=== PATIENT | female | born 1940 | race Caucasian/White ===

== ENCOUNTER 2019-02-05 20:05 | Emergency (ER) | payer OTHER ==
[~2019-02-05] VITALS: Ht 170.2 cm; Wt 77.1 kg
[~2019-02-05 20:05] MED LIST: ACET500 PO; ALLO100 PO; ANTIINFLAMMATORY; BISA5EC PO; CALCAVITD PO; DOCU100 PO; Daily Multiple1 EACH PO; FISH1000 PO; HYDACE5 PO; L-LYSINE600 MG PO; LEVSOD50 PO; LISI20 PO; LISI5 PO; RXHYD5325 PO; TRIHYD253B PO
[2019-04-10] MEDS ORDERED: LEVO-T50 MCG PO (18:30)
== END 2019-02-05 22:19 | disposition home or self-care (01) ==
LOC: ER 20:05
DX: M25.532 Pain in left wrist (principal); M25.572 Pain in left ankle and joints of left foot; W18.30XA Fall on same level, unspecified, initial encounter; Z88.2 Allergy status to sulfonamides; Z88.1 Allergy status to other antibiotic agents; Z88.0 Allergy status to penicillin; Z79.899 Other long term (current) drug therapy
CPT/HCPCS: 73110; 73564; 73610; 99283-25

== ENCOUNTER 2019-04-11 10:09 | Observation (INO) | payer OTHER ==
[~2019-04-11] VITALS: Ht 167.6 cm; Wt 77.0 kg
[~2019-04-11 10:09] MED LIST changes: +LEVO-T50 MCG PO
--- NOTE | 2019-04-11 16:24 | NUR ---
ARRIVED TO ROOM VIA PRESTON A&O X3, SLIGHTLY DROWSY, DENIES ANY PAIN AT THIS TIME, ORIENTED TO ROOM AND CALL SYSTEM, MONITOR FOR VS AND ANY CHANGES, AWAITING TELE MONITOR FROM PCU.
--- NOTE | 2019-04-11 18:56 | NUR ---
SUMMARY TOLERATING CARDIAC DIET FAIRLY WELL, REPORTS PAIN IS SLIGHTLY BETTER AFTER ICE PACK PLACED AND TYLENOL GIVEN, DSG C/D/I, NO ACUTE CHANGES THIS SHIFT.
--- NOTE | 2019-04-12 08:00 | NUR ---
SHIFT SUMMARY LYING IN SEMI FOWLERS WITH EYES OPEN. HAS RESTED WELL THIS SHIFT. PAIN MANAGED WITH TYLENOL. DRESSING TO LEFT CW IS C/D/I. DENEIS PAIN, DISCOMFORT, OR FURTHER NEEDS AT THIS TIME. HAND OFF GIVEN TO RUTH WEINSTEIN USING SBAR.
== END 2019-04-12 10:36 | disposition home or self-care (01) ==
LOC: MHTC 10:09 → SURS 14:25 → MHTC 15:50 → SURS 15:50
PROVIDERS: ADMIT Internal Medicine Interventional Cardiology
DX: I49.5 Sick sinus syndrome (principal); I10 Essential (primary) hypertension; E78.1 Pure hyperglyceridemia; Z88.1 Allergy status to other antibiotic agents; Z88.2 Allergy status to sulfonamides; Z95.0 Presence of cardiac pacemaker; Z88.0 Allergy status to penicillin
CPT/HCPCS: 33208; 71045; 71046; 76937; 93005; 93010; 96365; 99152; 99153; A9270; C1785; C1898; G0378; J1644; J2250; J3010; J3370; J7030; J7040